=== PATIENT | female | born 1990 | race Hispanic/Latino ===

== ENCOUNTER 2023-06-07 22:28 | Emergency (ER) | payer OTHER ==
[~2023-06-07] VITALS: Ht 162.6 cm; Wt 77.6 kg
[2023-06-08 01:00] VITALS: BP 124/81; PULSE 72; RESP 16; O2SAT 98
== END 2023-06-08 01:10 | disposition home or self-care (01) ==
LOC: EDH 22:28
DX: T19.2XXA Foreign body in vulva and vagina, initial encounter (principal)
CPT/HCPCS: 99281